=== PATIENT | female | born 2000 | race African-American/Black ===

== ENCOUNTER 2020-03-22 17:31 | Emergency (ER) | payer MEDICAID ==
[~2020-03-22] VITALS: Ht 170.2 cm; Wt 63.5 kg
[2020-03-22 18:05] VITALS: BP 120/78
--- NOTE | 2020-03-22 18:45 | NUR ---
LEFT WITHOUT DISCHARGE INSTRUCTIONS. DR. PURVIS STATES HE SAW PATIENT AND PUT HER BACK IN LOBBY. NO NURSING CARE RENDERED.
== END 2020-03-22 18:48 | disposition home or self-care (01) ==
LOC: MED 17:31
DX: L72.9 Follicular cyst of the skin and subcutaneous tissue, unspecified (principal)
CPT/HCPCS: 99284